=== PATIENT | female | born 1960 | race Caucasian/White ===

== ENCOUNTER 2019-12-24 11:28 | Emergency (ER) | payer SELFPAY ==
[~2019-12-24] VITALS: Ht 167.6 cm; Wt 95.9 kg
[2019-12-24 11:40] VITALS: TEMP 97.4
[2019-12-24 12:42] LABS: BASO # 0.1 (0.0-0.2); BASO % 1.1 % (0.0-2.0); EOS # 0.2 (0.0-0.7); EOS % 2.1 % (0-4.0); GRAN # 5.2 (1.4-6.5); GRAN % 60.6 % (42.2-75.2); HEMATOCRIT 44.4 % (37.0-47.0); HEMOGLOBIN 14.4 g/dl (12.5-16.0); LYMPH # 2.4 (1.2-3.4); LYMPH % 27.5 % (20.0-51.0); MEAN CELL VOLUME 88 fl (80.0-100.0); MEAN CORPUSCULAR HEMOGLOBIN 29 pg (27.0-31.0); MEAN CORPUSCULAR HGB CONC 32 g/dl (33.0-37.0); MEAN PLATELET VOLUME 10.5 fl (7.4-10.4); MONO # 0.7 (0.1-0.6); MONO % 8.3 % (1.7-9.3); PLATELET COUNT 279 K/mm3 (130-400); RED BLOOD COUNT 5.03 M/mm3 (4.10-5.30); REDCELL DISTRIBUTION WIDTH-CV 13.3 % (11.5-14.5)
[2019-12-24 12:53] LABS: ALANINE AMINOTRANSFERASE 23 U/L (4-34); ALKALINE PHOSPHATASE 77 U/L (50-136); ANION GAP 6 mmol/L (7-16); AST,SGOT 31 U/L (15-37); BILIRUBIN,TOTAL 0.7 mg/dL (0.0-1.0); BLOOD UREA NITROGEN 19 mg/dL (7-17); CALCIUM 9.1 mg/dL (8.4-10.2); CARBON DIOXIDE 32 mmol/L (22-30); CHLORIDE 98 mmol/L (98-107); CREATININE, serum 0.84 (0.52-1.25); GLUCOSE 307 mg/dL (74-106); POTASSIUM 3.3 mmol/L (3.4-5.0); SODIUM 136 mmol/L (137-145); TOTAL PROTEIN 6.8 gm/dL (6.4-8.2)
[2019-12-24 13:09] LABS: ACETAMINOPHEN < 10 ug/mL (10-30); ALCOHOL(ethanol),MEDICAL < 10 mg/dL; SALICYLATE < 1.0 mg/dL
[2019-12-24] MEDS ORDERED: JANUVIA 100MG100 MG PO (13:22)
[2019-12-24] MEDS ORDERED: CANA300T PO (13:23)
[2019-12-24] MEDS ORDERED: LEVEMIR100 U/ML SQ (13:24)
[2019-12-24] MEDS ORDERED: NOVOLOG 100U100 U/M1 SQ (13:24)
[2019-12-24] MEDS ORDERED: HYZAAR 25 MG-101 TAB PO (13:24)
[2019-12-24] MEDS ORDERED: SEROQUEL50 MG PO (13:25)
[2019-12-24] MEDS ORDERED: EFFEXOR XR75 MG/CAP PO (13:25)
[2019-12-24] MEDS ORDERED: NEURONTIN600 MG/TAB PO (13:26)
[2019-12-24] MEDS ORDERED: LIPITOR20 MG PO (13:26)
[2019-12-24] MEDS ORDERED: DIFLUCAN150 MG PO (13:27)
[2019-12-24] MEDS ORDERED: AMBIEN 10MG10 MG PO (13:27)
[2019-12-24] MEDS ORDERED: FLOVENT 44MCG I13 GM IH (13:28)
[2019-12-24] MEDS ORDERED: PROAIR DIGIHAL90 MCG IH (13:28)
[2019-12-24] MEDS ORDERED: SKELAXIN 4400 MG/TAB PO (13:29)
[2019-12-24 13:49] LABS: COLLECTION METHOD CLEAN CATCH
[2019-12-24 13:55] LABS: PH 5 (5-8); SQUAMOUS EPITHELIAL None Seen /hpf; URINE APPEARANCE Clear; URINE BACTERIA None Seen /hpf; URINE BILIRUBIN Negative (NEGATIVE); URINE BLOOD Negative (NEGATIVE); URINE COLOR Straw; URINE GLUCOSE 3+ (NEGATIVE); URINE KETONE Negative (NEGATIVE); URINE LEUKOCYTE ESTERASE Negative (NEGATIVE); URINE NITRATE Negative (NEGATIVE); URINE PROTEIN(semi-quant) Negative (NEGATIVE); URINE RBC 0-2 /hpf; URINE UROBILINOGEN Negative (NEGATIVE)
[2019-12-24 14:08] LABS: TRICYCLIC ANTIDEPRESS URINE NEGATIVE
[2019-12-24 18:30] VITALS: BP 125/72; PULSE 71
== END 2019-12-24 18:30 | disposition home or self-care (01) ==
LOC: COL.ER 11:28
PROVIDERS: Physician Assistant
DX: F32.9 Major depressive disorder, single episode, unspecified (principal); R45.851 Suicidal ideations; E11.9 Type 2 diabetes mellitus without complications; M79.7 Fibromyalgia; J45.909 Unspecified asthma, uncomplicated; Z20.828 Contact with and (suspected) exposure to other viral communicable diseases; Z79.4 Long term (current) use of insulin; Z90.710 Acquired absence of both cervix and uterus; Z88.2 Allergy status to sulfonamides; Z88.8 Allergy status to other drugs, medicaments and biological substances

== ENCOUNTER → 2020-12-11 | Outpatient (CLI) | payer OTHER ==
[~2020-12-11] MED LIST: AMBIEN 10MG10 MG PO; CANA300T PO; DIFLUCAN150 MG PO; EFFEXOR XR75 MG/CAP PO; FLOVENT 44MCG I13 GM IH; HYZAAR 25 MG-101 TAB PO; JANUVIA 100MG100 MG PO; LEVEMIR100 U/ML SQ; LIPITOR20 MG PO; NEURONTIN600 MG/TAB PO; NORCO 325 MG-51 TAB PO; NOVOLOG 100U100 U/M1 SQ; PREDNISONE50 MG PO; PROAIR DIGIHAL90 MCG IH; SEROQUEL50 MG PO; SKELAXIN 4400 MG/TAB PO
== END ==
LOC: COL.RAD 07:19
DX: M48.07 Spinal stenosis, lumbosacral region (principal); M43.16 Spondylolisthesis, lumbar region; M43.17 Spondylolisthesis, lumbosacral region

== ENCOUNTER → 2021-07-31 | Outpatient (CLI) | payer BC | LOC: COL.VAS 12:55 | DX: I10 Essential (primary) hypertension (principal); Z82.49 Family history of ischemic heart disease and other diseases of the circulatory system ==

== ENCOUNTER → 2023-04-14 | Outpatient (CLI) | payer OTHER ==
[~2023-04-14] MED LIST changes: +Iohexol 300 - 100 ML VIAL IV ONE; +NS 100 ML IV SCH; +ROBAXIN 75750 MG/TAB PO
== END ==
LOC: COL.RAD 07:52
DX: K76.0 Fatty (change of) liver, not elsewhere classified (principal); I72.8 Aneurysm of other specified arteries; M47.816 Spondylosis without myelopathy or radiculopathy, lumbar region; M43.17 Spondylolisthesis, lumbosacral region
CPT/HCPCS: Q9967